=== PATIENT | male | born 1985 | race Asian ===

== ENCOUNTER 2020-05-05 11:18 | Emergency (ER) | payer BC ==
[~2020-05-05] VITALS: Ht 185.4 cm; Wt 81.6 kg
[2020-05-05] MEDS ORDERED: INTESTINEX680 M2 PO (15:26)
[2020-05-05] MEDS ORDERED: ANTIFUNGAL113 GM TOP (15:26)
[2020-05-05] MEDS ORDERED: MUPIROCIN15 GM TOP (15:26)
[2020-05-05] MEDS ORDERED: MORGIDOX100 MG PO (15:26)
== END 2020-05-05 16:10 | disposition home or self-care (01) ==
LOC: ER 11:18
DX: N48.5 Ulcer of penis (principal); N48.1 Balanitis